=== PATIENT | female | born 1935 | race Caucasian/White ===

== ENCOUNTER 2018-08-22 11:02 | Inpatient (IN) ==
[2018-08-22] MEDS ORDERED: hydrALAZINE 20 MG/1 ML VIAL IM STA (11:43)
[2018-08-22] MEDS ORDERED: hydrALAZINE 20 MG/1 ML VIAL IV STA (12:22)
[2018-08-22 12:35] LABS: Basophils # 0.1 10*3/uL (0.0-0.2); Basophils % 0.6 % (0.0-0.8); Eosinophils # 0.8 10*3/uL (0.0-0.87); Eosinophils % 10.1 % (0.00-10.9); Hematocrit 38.4 VOL% (35.7-47.0); Hemoglobin 12.3 GM/DL (12.0-16.0); Immature Granulocytes % 0.4 %; Immature Granulocytes Absolute 0.03 #; Lymphocytes # 2.1 10*3/uL (1.4-4.0); Mean Corpuscular Volume 95.5 FL (87-102); Mean Platelet Volume 10.3 FL (9.6-12.0); Neutrophils % 50.9 % (38.7-73.9); Platelet Count 236 T/CUMM (130-400); Red Blood Count 4.02 MC/CUMM (3.8-5.5); Red Cell Distribution Width 13.6 % (9.3-17.3); White Blood Count 8.2 T/CUMM (4-12)
[2018-08-22 12:45] LABS: INR 1.1; Partial Thromboplastin Time 27.4 SECS (0-40)
[2018-08-22 13:01] LABS: Troponin I < 0.015 NG/ML (0.00-0.045)
[2018-08-22 13:05] LABS: Albumin 3.4 G/DL (3.4-5.0); Bilirubin,Total 0.6 MG/DL (0.2-1.0); Calcium 9.7 MG/DL (8.5-10.1); Osmolality,Calculated 277.7 MOS/KG (273-304); Total Protein 6.9 G/DL (6.4-8.3)
[2018-08-22 13:06] LABS: Free T4 (Free Thyroxine) 1.07 NG/DL (0.76-1.46); Thyroid Stimulating Hormone 13.3 uIU/ml (0.358-3.74)
[2018-08-22 13:45] LABS: Apearance,Urine Slightly Hazy (Clear); Bilirubin,Urine Negative (Negative); Blood, Urine Negative (Negative); Glucose,Urine (UA) Negative (Negative); Ketones,Urine Negative (Negative); Mucus,Urine Occasional /LPF (Occasional); Nitrite,Urine Negative (Negative); Protein,Urine >=500 MG/DL; RBC,Urine 5 /HPF (0-4); Squamous Epithelial Cell,Urine Occasional /HPF (0-10); Urine Color Yellow (Yellow); Urine Specific Gravity 1.015 (1.001-1.035); Urine Urobilinogen < 2.0 EU/DL (0.2-1.0); WBC,Urine 4 /HPF (0-6)
[2018-08-22] MEDS ORDERED: ONDANSETRON 4 MG/2 ML VIAL IV PRN (16:11)
[2018-08-22] MEDS ORDERED: ACETAMINOPHEN 325 MG TABLET PO PRN (16:11)
[2018-08-22] MEDS ORDERED: BIOTIN 5 MG PO SCH (21:00)
[2018-08-22] MEDS: CALCIUM (CARBONATE) 600 MG TABLET PO SCH (21:36)
[2018-08-22] MEDS: MULTIVITAMIN (CENTRUM) TABLET PO SCH (21:36)
[2018-08-22] MEDS: MULTIVITAMIN (OCUVITE) TABLET PO SCH (21:37)
[2018-08-22] MEDS: LACTOBACILLUS RHAMNOSUS GG CAPSULE PO SCH (21:37)
[2018-08-22] MEDS: DOCUSATE SODIUM 100 MG CAPSULE PO SCH (21:37)
[2018-08-22] MEDS: MAGNESIUM CHLORIDE 64 MG TABLET PO SCH (21:37)
[2018-08-22] MEDS: MULTIVITAMIN (BEROCCA) TABLET PO SCH (21:38)
[2018-08-22] MEDS: SIMVASTATIN 10 MG TABLET PO SCH (21:38)
[2018-08-22] MEDS: CARVEDILOL 25 MG TABLET PO SCH (21:38)
[2018-08-22] MEDS: ASCORBIC ACID 500 MG TABLET PO SCH (21:38)
[2018-08-22] MEDS: APIXABAN 5 MG TABLET PO SCH (21:39)
[2018-08-22] MEDS: tiZANidine 4 MG TABLET PO SCH (21:39)
[2018-08-23] MEDS: ASCORBIC ACID 500 MG TABLET PO SCH ×2 (07:59→20:39)
[2018-08-23] MEDS: DOCUSATE SODIUM 100 MG CAPSULE PO SCH ×2 (08:00→20:39)
[2018-08-23] MEDS: MAGNESIUM CHLORIDE 64 MG TABLET PO SCH ×2 (08:00→20:39)
[2018-08-23] MEDS: ASPIRIN CHEW 81 MG TABLET PO SCH (08:00)
[2018-08-23] MEDS: CARVEDILOL 25 MG TABLET PO SCH ×2 (08:00→20:39)
[2018-08-23] MEDS: PANTOPRAZOLE 40 MG TABLET PO SCH (08:00)
[2018-08-23] MEDS: APIXABAN 5 MG TABLET PO SCH ×2 (08:00→20:39)
[2018-08-23] MEDS: LOSARTAN 50 MG TABLET PO SCH (08:00)
[2018-08-23] MEDS: tiZANidine 4 MG TABLET PO SCH ×2 (08:01→20:39)
[2018-08-23] MEDS ORDERED: cloNIDine 0.1 MG TABLET PO PRN (08:54)
[2018-08-23] MEDS ORDERED: POTASSIUM CHLORIDE 20 MEQ TABLET PO SCH (09:00)
[2018-08-23] MEDS ORDERED: LEVOTHYROXINE 50 MCG TABLET PO SCH (09:00)
[2018-08-23] MEDS ORDERED: PANTOPRAZOLE 40 MG TABLET PO SCH (09:00)
[2018-08-23] MEDS: DULoxetine 30 MG CAPSULE PO SCH (09:11)
[2018-08-23] MEDS ORDERED: MAGNESIUM SULF RIDER 2 GM in PREMIX 1 EACH IV ONE (11:03)
[2018-08-23] MEDS: LACTOBACILLUS RHAMNOSUS GG CAPSULE PO SCH (20:39)
[2018-08-23] MEDS: MULTIVITAMIN (OCUVITE) TABLET PO SCH (20:39)
[2018-08-23] MEDS: SIMVASTATIN 10 MG TABLET PO SCH (20:39)
[2018-08-23] MEDS: CALCIUM (CARBONATE) 600 MG TABLET PO SCH (20:39)
[2018-08-23] MEDS: MULTIVITAMIN (BEROCCA) TABLET PO SCH (20:39)
[2018-08-23] MEDS: MULTIVITAMIN (CENTRUM) TABLET PO SCH (20:39)
[2018-08-24 05:09] LABS: Basophils # 0.1 10*3/uL (0.0-0.2); Basophils % 0.6 % (0.0-0.8); Eosinophils # 0.7 10*3/uL (0.0-0.87); Eosinophils % 8.3 % (0.00-10.9); Hematocrit 35.4 VOL% (35.7-47.0); Hemoglobin 10.9 GM/DL (12.0-16.0); Immature Granulocytes % 0.1 %; Immature Granulocytes Absolute 0.01 #; Lymphocytes # 2.2 10*3/uL (1.4-4.0); Lymphocytes % 27.4 % (21.3-54.2); Mean Corpuscular HGB Conc 30.8 GM/DL (32-36); Mean Platelet Volume 10.6 FL (9.6-12.0); Monocytes % 11.9 % (1.7-12.7); Neutrophils % 51.7 % (38.7-73.9); Platelet Count 224 T/CUMM (130-400); Red Blood Count 3.65 MC/CUMM (3.8-5.5); Red Cell Distribution Width 13.4 % (9.3-17.3)
[2018-08-24 05:15] LABS: Calcium 9.3 MG/DL (8.5-10.1); Osmolality,Calculated 278.5 MOS/KG (273-304)
[2018-08-24] MEDS ORDERED: LEVOTHYROXINE 75 MCG TABLET PO SCH (06:30)
[2018-08-24] MEDS: DULoxetine 30 MG CAPSULE PO SCH (08:36)
[2018-08-24] MEDS: CARVEDILOL 25 MG TABLET PO SCH (08:36)
[2018-08-24] MEDS: ASCORBIC ACID 500 MG TABLET PO SCH (08:37)
[2018-08-24] MEDS: LOSARTAN 50 MG TABLET PO SCH (08:37)
[2018-08-24] MEDS: MAGNESIUM CHLORIDE 64 MG TABLET PO SCH (08:37)
[2018-08-24] MEDS: APIXABAN 5 MG TABLET PO SCH (08:37)
[2018-08-24] MEDS: ASPIRIN CHEW 81 MG TABLET PO SCH (08:37)
[2018-08-24] MEDS: DOCUSATE SODIUM 100 MG CAPSULE PO SCH (08:37)
[2018-08-24] MEDS: PANTOPRAZOLE 40 MG TABLET PO SCH (08:38)
[2018-08-24] MEDS: tiZANidine 4 MG TABLET PO SCH (08:38)
[2018-08-24] MEDS ORDERED: amLODIPine 5 MG TABLET PO SCH (09:00)
[2018-08-24 11:29] VITALS: BP 135/57
== END 2018-08-24 12:11 | disposition home or self-care (01) | DRG 69 ==
LOC: EDBD → EDUNIT# → N.ED 11:02 → N.EDINP 14:14 → N.2E 15:18
PROVIDERS: ADMIT Family Medicine; ATTEND Family Medicine

== ENCOUNTER 2019-07-11 13:41 | Observation (INO) ==
[2019-07-11] MEDS ORDERED: ONDANSETRON 4 MG/2 ML VIAL IV PRN (14:27)
[2019-07-11] MEDS ORDERED: ACETAMINOPHEN 325 MG TABLET PO PRN (14:27)
[2019-07-11] MEDS ORDERED: SODIUM CHLORIDE 0.9% 1,000 ML IV PRN (18:15)
[2019-07-11] MEDS ORDERED: diphenhydrAMINE CAP 25 MG CAPSULE PO ONE (18:18)
[2019-07-11] MEDS ORDERED: ACETAMINOPHEN 325 MG TABLET PO ONE (18:19)
[2019-07-11] MEDS ORDERED: FUROSEMIDE 20 MG/2 ML VIAL IV ONE (19:11)
[2019-07-11] MEDS: carvediloL 25 MG TABLET PO SCH (20:47)
[2019-07-11] MEDS ORDERED: SIMVASTATIN 10 MG TABLET PO SCH (21:00)
[2019-07-11] MEDS: SODIUM CHLORIDE 0.9% 1,000 ML IV SCH (22:21)
[2019-07-12] MEDS ORDERED: LEVOTHYROXINE 75 MCG TABLET PO SCH (06:30)
[2019-07-12 07:13] LABS: Basophils # 0.1 10*3/uL (0.0-0.2); Basophils % 0.3 % (0.0-0.8); Eosinophils # 0.5 10*3/uL (0.0-0.87); Eosinophils % 1.7 % (0.00-10.9); Hematocrit 27.6 VOL% (35.7-47.0); Lymphocytes # 1.1 10*3/uL (1.4-4.0); Lymphocytes % 3.7 % (21.3-54.2); Mean Corpuscular HGB Conc 32.6 GM/DL (32-36); Mean Corpuscular Volume 93.9 FL (87-102); Mean Platelet Volume 10.3 FL (9.6-12.0); Monocytes % 5.7 % (1.7-12.7); Neutrophils % 87.6 % (38.7-73.9); Platelet Count 476 T/CUMM (130-400); Red Blood Count 2.94 MC/CUMM (3.8-5.5); Red Cell Distribution Width 15.8 % (9.3-17.3); White Blood Count 30.3 T/CUMM (4-12)
[2019-07-12 07:33] LABS: Band Neutrophils 8 % (0-10); Hypochromasia 1+; Lymphocytes 2 % (20-55); Segmented Neutrophils 85 % (50-85); Total Cells Counted 100
[2019-07-12 07:34] LABS: Anisocytosis 1+; Microcytosis 1+; Platelet Estimate Increased; Polychromasia Slight
[2019-07-12 07:43] LABS: Albumin 2.4 G/DL (3.4-5.0); Bilirubin,Total 0.6 MG/DL (0.2-1.0); Calcium 9.3 MG/DL (8.5-10.1); Osmolality,Calculated 280.2 MOS/KG (273-304); Total Protein 6.8 G/DL (6.4-8.3)
[2019-07-12] MEDS ORDERED: cefTRIAXone 1,000 MG in SYRINGE 1 EACH IV ONE (08:42)
[2019-07-12] MEDS ORDERED: SODIUM CHLORIDE 0.9% 1,000 ML IV PRN ×2 (08:46→10:11)
[2019-07-12] MEDS ORDERED: POTASSIUM CHLORIDE 20 MEQ PACK PO SCH (09:00)
[2019-07-12] MEDS ORDERED: VALSARTAN 80 MG TABLET PO SCH (09:00)
[2019-07-12] MEDS ORDERED: hydroCHLOROthiazide 12.5 MG CAPSULE PO SCH (09:00)
[2019-07-12] MEDS ORDERED: amLODIPine 5 MG TABLET PO SCH (09:00)
[2019-07-12] MEDS ORDERED: PANTOPRAZOLE 40 MG TABLET PO SCH (09:00)
[2019-07-12] MEDS: carvediloL 25 MG TABLET PO SCH ×2 (09:48→17:16)
[2019-07-12] MEDS: SODIUM CHLORIDE 0.9% 1,000 ML IV SCH (09:51)
[2019-07-12 19:02] LABS: Apearance,Urine CLOUDY (Clear); Bilirubin,Urine Negative (Negative); Blood, Urine Moderate mg/dL (Negative); Glucose,Urine (UA) Negative (Negative); Ketones,Urine Negative (Negative); Mucus,Urine Occasional /LPF (Occasional); Nitrite,Urine Negative (Negative); Protein,Urine 100 MG/DL; RBC,Urine 15 /HPF (0-4); Squamous Epithelial Cell,Urine Few /HPF (0-10); Urine Color Yellow (Yellow); Urine Specific Gravity 1.014 (1.001-1.035); Urine Urobilinogen < 2.0 EU/DL (0.2-1.0); WBC,Urine 91 /HPF (0-6)
[2019-07-12 21:34] VITALS: BP 129/59
== END 2019-07-12 20:07 | disposition home or self-care (01) ==
LOC: N.TELEN
PROVIDERS: ADMIT Family Medicine; ATTEND Family Medicine

== ENCOUNTER 2021-11-20 13:16 | Inpatient (IN) ==
[2021-11-20 15:36] LABS: Basophils % 0.6 % (0.0-0.8); Eosinophils # 0.3 10*3/uL (0.0-0.87); Eosinophils % 3.6 % (0.00-10.9); Hematocrit 38.3 VOL% (35.7-47.0); Hemoglobin 12.5 GM/DL (12.0-16.0); Immature Granulocytes % 0.3 %; Immature Granulocytes Absolute 0.02 #; Lymphocytes # 2.5 10*3/uL (1.4-4.0); Lymphocytes % 34.3 % (21.3-54.2); Mean Corpuscular HGB Conc 32.6 GM/DL (32-36); Mean Corpuscular Volume 94.1 FL (87-102); Mean Platelet Volume 10.6 FL (9.6-12.0); Monocytes # 0.8 10*3/uL (0.11-0.8); Monocytes % 11.5 % (1.7-12.7); Neutrophils % 49.7 % (38.7-73.9); Platelet Count 267 T/CUMM (130-400); Red Blood Count 4.07 MC/CUMM (3.8-5.5); Red Cell Distribution Width 12.9 % (9.3-17.3); White Blood Count 7.2 T/CUMM (4-12)
[2021-11-20 15:44] LABS: PT Patient Result 11.3 SECS (10.1-12.1); Partial Thromboplastin Time 26.4 SECS (23.7-32.9)
[2021-11-20 15:52] LABS: Albumin 2.8 G/DL (3.4-5.0); Bilirubin,Total 0.4 MG/DL (0.20-1.00); Calcium 9.9 MG/DL (8.5-10.1); Osmolality,Calculated 276.1 MOS/KG (273-304); Potassium 4.5 MMOL/L (3.5-5.1); Total Protein 7.2 G/DL (6.4-8.2)
[2021-11-20] MEDS ORDERED: ONDANSETRON 4 MG/2 ML VIAL IV PRN (17:06)
[2021-11-20] MEDS ORDERED: ACETAMINOPHEN 325 MG TABLET PO PRN (17:06)
[2021-11-20] MEDS ORDERED: cloNIDine 0.1 MG TABLET PO STA (17:14)
[2021-11-20 18:04] LABS: Bilirubin,Urine Negative (Negative); Glucose,Urine (UA) Negative (Negative); Ketones,Urine Negative (Negative); Nitrite,Urine Negative (Negative); Protein,Urine >=300 mg/dL (Negative); Urine Appearance Clear (Clear); Urine Color Yellow (Yellow)
[2021-11-20 18:05] LABS: Blood, Urine Small mg/dL (Negative); Urine Urobilinogen 0.2 eU/dL (<2.0)
[2021-11-20 18:06] LABS: RBC,Urine 15-20 /HPF (0-4)
[2021-11-20] MEDS ORDERED: hydrALAZINE 20 MG/1 ML VIAL IV STA (18:19)
[2021-11-20] MEDS: SODIUM CHLORIDE 0.9% 1,000 ML IV SCH (18:35)
[2021-11-20] MEDS: MAGNESIUM CHLORIDE 64 MG TABLET PO SCH (21:40)
[2021-11-20] MEDS: carvediloL 25 MG TABLET PO SCH (21:41)
[2021-11-20] MEDS: SIMVASTATIN 10 MG TABLET PO SCH (21:41)
[2021-11-20] MEDS: LEVOTHYROXINE 175 MCG TABLET PO SCH (21:41)
[2021-11-20] MEDS: DOCUSATE SODIUM 100 MG CAPSULE PO SCH (22:30)
[2021-11-21 06:14] LABS: Basophils % 0.5 % (0.0-0.8); Eosinophils # 0.3 10*3/uL (0.0-0.87); Eosinophils % 4.5 % (0.00-10.9); Hematocrit 33.8 VOL% (35.7-47.0); Hemoglobin 10.9 GM/DL (12.0-16.0); Immature Granulocytes % 0.2 %; Immature Granulocytes Absolute 0.01 #; Lymphocytes # 2.2 10*3/uL (1.4-4.0); Lymphocytes % 36.7 % (21.3-54.2); Mean Corpuscular HGB Conc 32.2 GM/DL (32-36); Mean Corpuscular Volume 95.5 FL (87-102); Mean Platelet Volume 10.1 FL (9.6-12.0); Monocytes % 15.9 % (1.7-12.7); Neutrophils % 42.2 % (38.7-73.9); Platelet Count 222 T/CUMM (130-400); Red Blood Count 3.54 MC/CUMM (3.8-5.5)
[2021-11-21 06:35] LABS: Alanine Aminotransferase 12 U/L (13-56); Albumin 2.5 G/DL (3.4-5.0); Alkaline Phosphatase 62 U/L (45-117); Aspartate Amino Transferase 25 U/L (0-37); Bilirubin,Total < 0.39 MG/DL (0.20-1.00); Blood Urea Nitrogen 27 MG/DL (7-18); Calcium 9.3 MG/DL (8.5-10.1); Carbon Dioxide 29 MMOL/L (21-32); Chloride 105 MMOL/L (98-107); Glucose 87 MG/DL (74-106); Osmolality,Calculated 280.5 MOS/KG (273-304); Sodium 139 MMOL/L (136-145); Total Protein 6.3 G/DL (6.4-8.2)
[2021-11-21 06:44] LABS: Total Protein (Chem) 6.3 G/DL (6.4-8.3)
[2021-11-21 06:48] LABS: Eosinophils 6 % (0-10); Hypochromia Slight; Lymphocytes 40 % (20-55); Platelet Estimate Adequate; Total Cells Counted 100
[2021-11-21 06:49] LABS: Microcytosis Slight
[2021-11-21 09:25] LABS: Albumin (SPE) 3.4 G/DL (3.2-5.3); Alpha 1 (SPE) 0.2 G/DL (0.1-0.4); Alpha 1 (SPE) Rel % 3.5 %; Alpha 2 (SPE) Rel % 16.4 %; Beta (SPE) 0.8 G/DL (0.5-1.1); Beta (SPE) Rel % 12.7 %; Gamma (SPE) 0.8 G/DL (0.7-1.7); Gamma (SPE) Rel % 13.4 %
[2021-11-21] MEDS: hydroCHLOROthiazide 25 MG TABLET PO SCH (09:49)
[2021-11-21] MEDS: PANTOPRAZOLE 40 MG TABLET PO SCH (09:50)
[2021-11-21] MEDS: carvediloL 25 MG TABLET PO SCH ×2 (09:50→17:00)
[2021-11-21] MEDS: DOCUSATE SODIUM 100 MG CAPSULE PO SCH ×2 (09:50→21:41)
[2021-11-21] MEDS: MAGNESIUM CHLORIDE 64 MG TABLET PO SCH ×2 (09:52→21:41)
[2021-11-21] MEDS: SODIUM CHLORIDE 0.9% 1,000 ML IV SCH ×3 (10:01→21:56)
[2021-11-21] MEDS ORDERED: BISACODYL 5 MG TABLET PO ONE (15:00)
[2021-11-21] MEDS ORDERED: POLYETHYLENE GLYCOL POWDER 255 GM BOTTLE PO ONE (18:00)
[2021-11-21] MEDS: LEVOTHYROXINE 175 MCG TABLET PO SCH (21:41)
[2021-11-21] MEDS: SIMVASTATIN 10 MG TABLET PO SCH (21:42)
[2021-11-22] MEDS: hydrALAZINE 20 MG/1 ML VIAL IV PRN ×2 (02:04→17:05)
[2021-11-22] MEDS ORDERED: POLYETHYLENE GLYCOL POWDER 255 GM BOTTLE PO ONE (05:00)
[2021-11-22 05:02] LABS: PT Patient Result 11.4 SECS (10.1-12.1)
[2021-11-22] MEDS ORDERED: CLINDAMYCIN INJ 900 MG/50 ML PREMIX IV ONE (06:00)
[2021-11-22] MEDS ORDERED: ETOMIDATE 40 MG/20 ML VIAL IV ONE (07:16)
[2021-11-22] MEDS ORDERED: DEXAMETHASONE 4 MG/1 ML VIAL ONE ×2 (07:16→11:42)
[2021-11-22] MEDS ORDERED: ONDANSETRON 4 MG/2 ML VIAL ONE (07:16)
[2021-11-22] MEDS ORDERED: LIDOCAINE 2% 5 ML VIAL ONE (07:16)
[2021-11-22] MEDS ORDERED: propofoL 200 MG/20 ML VIAL IV ONE (07:16)
[2021-11-22] MEDS ORDERED: SEVOFLURANE 1 UNIT/15 MINUTE INH ONE ×4 (07:16→11:06)
[2021-11-22] MEDS ORDERED: fentaNYL 100 MCG/2 ML VIAL ONE (07:17)
[2021-11-22] MEDS ORDERED: ACETAMINOPHEN INJ 0 MG/0 ML VIAL IV ONE (07:28)
[2021-11-22] MEDS ORDERED: LACTATED RINGERS 1,000 ML IV SCH (08:00)
[2021-11-22] MEDS ORDERED: SUCCINYLCHOLINE 200 MG/10 ML VIAL ONE (08:25)
[2021-11-22] MEDS ORDERED: PHENYLEPHRINE 1 MG/10 ML SYRINGE IV ONE ×2 (08:33→09:15)
[2021-11-22] MEDS ORDERED: ePHEDrine 50 MG/ML VIAL ONE (09:12)
[2021-11-22] MEDS ORDERED: LACTATED RINGERS 1,000 ML IV ONE (10:15)
[2021-11-22] MEDS ORDERED: NEOSTIGMINE 10 MG/10 ML VIAL ONE (10:26)
[2021-11-22] MEDS ORDERED: GLYCOPYRROLATE 0.4 MG/2 ML VIAL ONE (10:26)
[2021-11-22] MEDS: MAGNESIUM CHLORIDE 64 MG TABLET PO SCH ×2 (11:04→22:09)
[2021-11-22] MEDS: PANTOPRAZOLE 40 MG TABLET PO SCH (11:04)
[2021-11-22] MEDS: DOCUSATE SODIUM 100 MG CAPSULE PO SCH ×2 (11:04→22:09)
[2021-11-22] MEDS: hydroCHLOROthiazide 25 MG TABLET PO SCH (11:04)
[2021-11-22] MEDS: carvediloL 25 MG TABLET PO SCH ×2 (11:04→17:06)
[2021-11-22] MEDS: LACTATED RINGERS 1,000 ML IV SCH (11:04)
[2021-11-22] MEDS ORDERED: ACETAMINOPHEN INJ 1,000 MG/100 ML VIAL IV ONE (11:06)
[2021-11-22] MEDS ORDERED: SUGAMMADEX 200 MG/2 ML VIAL IV ONE (11:28)
[2021-11-22] MEDS ORDERED: HYDROmorphone 1 MG/1 ML SYRINGE ONE (11:33)
[2021-11-22] MEDS ORDERED: HYDROmorphone 1 MG/1 ML SYRINGE IV PRN (11:36)
[2021-11-22] MEDS ORDERED: LIDOCAINE 1% 5 ML VIAL ONE (11:42)
[2021-11-22] MEDS ORDERED: ROPIVACAINE 0.5% 30 ML VIAL ONE (11:43)
[2021-11-22] MEDS: HYDROmorphone 1 MG/1 ML SYRINGE IV PRN ×3 (15:54→23:47)
[2021-11-22] MEDS: SODIUM CHLORIDE 0.9% 1,000 ML IV SCH (17:05)
[2021-11-22] MEDS: LEVOTHYROXINE 175 MCG TABLET PO SCH (22:09)
[2021-11-22] MEDS: SIMVASTATIN 10 MG TABLET PO SCH (22:09)
[2021-11-23] MEDS: SODIUM CHLORIDE 0.9% 1,000 ML IV SCH ×2 (03:05→17:03)
[2021-11-23] MEDS: hydrALAZINE 20 MG/1 ML VIAL IV PRN ×3 (04:53→13:00)
[2021-11-23 06:47] LABS: Basophils % 0.1 % (0.0-0.8); Hematocrit 36.9 VOL% (35.7-47.0); Hemoglobin 12.1 GM/DL (12.0-16.0); Immature Granulocytes % 0.5 %; Immature Granulocytes Absolute 0.07 #; Lymphocytes # 2.2 10*3/uL (1.4-4.0); Lymphocytes % 14.9 % (21.3-54.2); Mean Corpuscular HGB Conc 32.8 GM/DL (32-36); Mean Corpuscular Volume 92.7 FL (87-102); Mean Platelet Volume 9.9 FL (9.6-12.0); Monocytes # 1.3 10*3/uL (0.11-0.8); Monocytes % 8.7 % (1.7-12.7); Neutrophils % 75.8 % (38.7-73.9); Platelet Count 291 T/CUMM (130-400); Red Blood Count 3.98 MC/CUMM (3.8-5.5); Red Cell Distribution Width 13.2 % (9.3-17.3); White Blood Count 14.9 T/CUMM (4-12)
[2021-11-23] MEDS: HYDROmorphone 1 MG/1 ML SYRINGE IV PRN ×3 (06:47→19:31)
[2021-11-23 07:14] LABS: Calcium 9.6 MG/DL (8.5-10.1); Potassium 4.4 MMOL/L (3.5-5.1)
[2021-11-23] MEDS: hydroCHLOROthiazide 25 MG TABLET PO SCH (09:42)
[2021-11-23] MEDS: PANTOPRAZOLE 40 MG TABLET PO SCH (09:42)
[2021-11-23] MEDS: carvediloL 25 MG TABLET PO SCH ×2 (09:42→16:52)
[2021-11-23] MEDS: LACTATED RINGERS 1,000 ML IV SCH (09:42)
[2021-11-23] MEDS: DOCUSATE SODIUM 100 MG CAPSULE PO SCH ×2 (09:42→20:06)
[2021-11-23] MEDS: MAGNESIUM CHLORIDE 64 MG TABLET PO SCH ×2 (09:43→20:07)
[2021-11-23] MEDS: KETOROLAC 15 MG/1 ML VIAL IV PRN ×2 (09:56→17:03)
[2021-11-23] MEDS: LEVOTHYROXINE 175 MCG TABLET PO SCH (20:06)
[2021-11-23] MEDS: SIMVASTATIN 10 MG TABLET PO SCH (20:07)
[2021-11-24] MEDS: HYDROmorphone 1 MG/1 ML SYRINGE IV PRN ×5 (02:25→20:13)
[2021-11-24] MEDS: SODIUM CHLORIDE 0.9% 1,000 ML IV SCH ×2 (05:40→19:11)
[2021-11-24] MEDS: hydroCHLOROthiazide 25 MG TABLET PO SCH (08:35)
[2021-11-24] MEDS: PANTOPRAZOLE 40 MG TABLET PO SCH (08:35)
[2021-11-24] MEDS: MAGNESIUM CHLORIDE 64 MG TABLET PO SCH ×2 (08:35→20:15)
[2021-11-24] MEDS: DOCUSATE SODIUM 100 MG CAPSULE PO SCH ×2 (08:35→20:15)
[2021-11-24] MEDS: carvediloL 25 MG TABLET PO SCH ×2 (08:35→16:14)
[2021-11-24] MEDS: KETOROLAC 15 MG/1 ML VIAL IV PRN ×3 (08:41→23:29)
[2021-11-24] MEDS: LACTATED RINGERS 1,000 ML IV SCH (08:44)
[2021-11-24] MEDS: LEVOTHYROXINE 175 MCG TABLET PO SCH (20:15)
[2021-11-24] MEDS: SIMVASTATIN 10 MG TABLET PO SCH (20:15)
[2021-11-25] MEDS ORDERED: ALBUTEROL/IPRATROPIUM 3 ML NEB RESP TX PRN (04:54)
[2021-11-25] MEDS ORDERED: FUROSEMIDE 40 MG/4 ML VIAL IV ONE ×2 (04:54→10:15)
[2021-11-25] MEDS: HYDROmorphone 1 MG/1 ML SYRINGE IV PRN (05:07)
[2021-11-25 06:10] LABS: Albumin 2.1 G/DL (3.4-5.0); Bilirubin,Total 0.6 MG/DL (0.20-1.00); Calcium 8.8 MG/DL (8.5-10.1); Osmolality,Calculated 277.7 MOS/KG (273-304); Potassium 3.7 MMOL/L (3.5-5.1); Total Protein 6.1 G/DL (6.4-8.2)
[2021-11-25] MEDS: KETOROLAC 15 MG/1 ML VIAL IV PRN (09:17)
[2021-11-25] MEDS: DOCUSATE SODIUM 100 MG CAPSULE PO SCH ×2 (09:28→20:56)
[2021-11-25] MEDS: carvediloL 25 MG TABLET PO SCH ×2 (09:28→17:37)
[2021-11-25] MEDS: hydroCHLOROthiazide 25 MG TABLET PO SCH (09:29)
[2021-11-25] MEDS: MAGNESIUM CHLORIDE 64 MG TABLET PO SCH ×2 (09:29→20:56)
[2021-11-25] MEDS: ENOXAPARIN 40 MG/0.4 ML SYRINGE SUBCUT SCH (09:29)
[2021-11-25] MEDS: PANTOPRAZOLE 40 MG TABLET PO SCH (09:29)
[2021-11-25] MEDS ORDERED: MORPHINE 2 MG/1 ML SYRINGE IV ONE (10:15)
[2021-11-25] MEDS: FLUTICASONE 50 MCG NASAL SPRAY 16 GM BOTTLE BOTH NARES SCH (15:31)
[2021-11-25] MEDS: AZELASTINE NASAL 137 MCG/SPRAY 30 ML BOTTLE BOTH NARES SCH ×2 (15:31→20:55)
[2021-11-25] MEDS: SIMVASTATIN 10 MG TABLET PO SCH (20:56)
[2021-11-25] MEDS: LEVOTHYROXINE 175 MCG TABLET PO SCH (20:56)
[2021-11-26] MEDS: KETOROLAC 15 MG/1 ML VIAL IV PRN ×2 (04:26→11:32)
[2021-11-26] MEDS: hydroCHLOROthiazide 25 MG TABLET PO SCH (08:35)
[2021-11-26] MEDS: DOCUSATE SODIUM 100 MG CAPSULE PO SCH ×2 (08:35→21:56)
[2021-11-26] MEDS: MAGNESIUM CHLORIDE 64 MG TABLET PO SCH ×2 (08:36→21:56)
[2021-11-26] MEDS: carvediloL 25 MG TABLET PO SCH ×2 (08:36→17:16)
[2021-11-26] MEDS: FLUTICASONE 50 MCG NASAL SPRAY 16 GM BOTTLE BOTH NARES SCH (08:36)
[2021-11-26] MEDS: PANTOPRAZOLE 40 MG TABLET PO SCH (08:36)
[2021-11-26] MEDS: ENOXAPARIN 40 MG/0.4 ML SYRINGE SUBCUT SCH (08:36)
[2021-11-26] MEDS: AZELASTINE NASAL 137 MCG/SPRAY 30 ML BOTTLE BOTH NARES SCH ×2 (08:45→21:56)
[2021-11-26] MEDS: HYDROmorphone 1 MG/1 ML SYRINGE IV PRN (14:48)
[2021-11-26] MEDS ORDERED: POTASSIUM CHLORIDE 20 MEQ TABLET PO ONE (19:54)
[2021-11-26] MEDS: SIMVASTATIN 10 MG TABLET PO SCH (21:56)
[2021-11-26] MEDS: LEVOTHYROXINE 175 MCG TABLET PO SCH (21:56)
[2021-11-27 05:10] LABS: Basophils % 0.4 % (0.0-0.8); Eosinophils # 0.4 10*3/uL (0.0-0.87); Eosinophils % 4.8 % (0.00-10.9); Hematocrit 30.1 VOL% (35.7-47.0); Hemoglobin 9.8 GM/DL (12.0-16.0); Immature Granulocytes % 0.4 %; Immature Granulocytes Absolute 0.03 #; Lymphocytes # 1.6 10*3/uL (1.4-4.0); Lymphocytes % 21.3 % (21.3-54.2); Mean Corpuscular HGB Conc 32.6 GM/DL (32-36); Mean Corpuscular Volume 92.9 FL (87-102); Mean Platelet Volume 10.8 FL (9.6-12.0); Monocytes # 1.1 10*3/uL (0.11-0.8); Monocytes % 14.4 % (1.7-12.7); Neutrophils % 58.7 % (38.7-73.9); Platelet Count 239 T/CUMM (130-400); Red Blood Count 3.24 MC/CUMM (3.8-5.5); Red Cell Distribution Width 12.8 % (9.3-17.3); White Blood Count 7.4 T/CUMM (4-12)
[2021-11-27 05:38] LABS: Calcium 8.9 MG/DL (8.5-10.1); Osmolality,Calculated 280.5 MOS/KG (273-304); Potassium 3.8 MMOL/L (3.5-5.1)
[2021-11-27 08:42] VITALS: BP 182/81
[2021-11-27] MEDS: carvediloL 25 MG TABLET PO SCH (10:28)
[2021-11-27] MEDS: DOCUSATE SODIUM 100 MG CAPSULE PO SCH (10:29)
[2021-11-27] MEDS: PANTOPRAZOLE 40 MG TABLET PO SCH (10:30)
[2021-11-27] MEDS: hydroCHLOROthiazide 25 MG TABLET PO SCH (10:30)
[2021-11-27] MEDS: MAGNESIUM CHLORIDE 64 MG TABLET PO SCH (10:31)
[2021-11-27] MEDS: AZELASTINE NASAL 137 MCG/SPRAY 30 ML BOTTLE BOTH NARES SCH (10:35)
[2021-11-27] MEDS: FLUTICASONE 50 MCG NASAL SPRAY 16 GM BOTTLE BOTH NARES SCH (10:35)
[2021-11-27] MEDS: ENOXAPARIN 40 MG/0.4 ML SYRINGE SUBCUT SCH (10:40)
== END 2021-11-27 12:37 | disposition swing bed (61) | DRG 740 ==
LOC: N.ED 13:16 → N.EDINP 17:05 → N.3E 18:20
PROVIDERS: ADMIT Family Medicine; ATTEND Family Medicine

== ENCOUNTER 2021-12-19 09:10 | Inpatient (IN) ==
[2021-12-19 11:21] LABS: Basophils % 0.2 % (0.0-0.8); Eosinophils # 0.4 10*3/uL (0.0-0.87); Eosinophils % 2.9 % (0.00-10.9); Hematocrit 31.8 VOL% (35.7-47.0); Hemoglobin 10.3 GM/DL (12.0-16.0); Immature Granulocytes % 0.7 %; Lymphocytes # 1.5 10*3/uL (1.4-4.0); Lymphocytes % 10.4 % (21.3-54.2); Mean Corpuscular HGB Conc 32.4 GM/DL (32-36); Mean Corpuscular Volume 91.6 FL (87-102); Mean Platelet Volume 10.6 FL (9.6-12.0); Monocytes # 1.5 10*3/uL (0.11-0.8); Monocytes % 9.9 % (1.7-12.7); Neutrophils % 75.9 % (38.7-73.9); Platelet Count 338 T/CUMM (130-400); Red Blood Count 3.47 MC/CUMM (3.8-5.5); White Blood Count 14.7 T/CUMM (4-12)
[2021-12-19 11:42] LABS: Albumin 2.3 G/DL (3.4-5.0); Bilirubin,Total 0.4 MG/DL (0.20-1.00); Calcium 9.7 MG/DL (8.5-10.1); Osmolality,Calculated 283.4 MOS/KG (273-304); Potassium 4.8 MMOL/L (3.5-5.1)
[2021-12-19 12:00] LABS: Glucose,Urine (UA) Negative (Negative); Ketones,Urine Negative (Negative); Urine Appearance Slightly Cloudy (Clear); Urine Color Yellow (Yellow); Urine pH 5.5 (4.5-8.0)
[2021-12-19 12:01] LABS: Bilirubin,Urine Negative (Negative); Blood, Urine Negative (Negative); Nitrite,Urine Negative (Negative); Protein,Urine 100 mg/dL (Negative); Urine Urobilinogen 0.2 eU/dL (<2.0)
[2021-12-19 12:03] LABS: Amorphous Crystals,Urine Occasional /HPF (Few)
[2021-12-19] MEDS ORDERED: SODIUM CHLORIDE 0.9% 1,000 ML IV STA (12:43)
[2021-12-19] MEDS ORDERED: ONDANSETRON 4 MG/2 ML VIAL IV PRN (13:18)
[2021-12-19] MEDS ORDERED: LACTULOSE 20 GM/30 ML UDCUP PO STA (13:51)
[2021-12-19] MEDS: SODIUM CHLORIDE 0.9% 1,000 ML IV SCH ×2 (15:11→23:30)
[2021-12-19] MEDS: ACETAMINOPHEN 325 MG TABLET PO PRN (15:17)
[2021-12-19] MEDS ORDERED: LEVOTHYROXINE 175 MCG TABLET PO SCH (21:00)
[2021-12-19] MEDS: diphenhydrAMINE CAP 25 MG CAPSULE PO SCH (21:40)
[2021-12-19] MEDS: DOCUSATE SODIUM 100 MG CAPSULE PO SCH (21:40)
[2021-12-19] MEDS: MAGNESIUM CHLORIDE 64 MG TABLET PO SCH (21:40)
[2021-12-19] MEDS: DULoxetine 30 MG CAPSULE PO SCH (21:40)
[2021-12-19] MEDS: ENOXAPARIN 30 MG/0.3 ML SYRINGE SUBCUT SCH (21:40)
[2021-12-19] MEDS: ACETAMINOPHEN 500 MG TABLET PO SCH (21:40)
[2021-12-19] MEDS: SIMVASTATIN 10 MG TABLET PO SCH (21:41)
[2021-12-20] MEDS: LEVOTHYROXINE 175 MCG TABLET PO SCH (06:07)
[2021-12-20 09:10] LABS: Basophils % 0.3 % (0.0-0.8); Eosinophils # 0.5 10*3/uL (0.0-0.87); Eosinophils % 4.1 % (0.00-10.9); Hematocrit 25.8 VOL% (35.7-47.0); Hemoglobin 8.4 GM/DL (12.0-16.0); Immature Granulocytes % 0.5 %; Immature Granulocytes Absolute 0.06 #; Lymphocytes # 1.3 10*3/uL (1.4-4.0); Lymphocytes % 11.5 % (21.3-54.2); Mean Corpuscular HGB Conc 32.6 GM/DL (32-36); Mean Corpuscular Volume 91.8 FL (87-102); Mean Platelet Volume 10.3 FL (9.6-12.0); Monocytes # 1.3 10*3/uL (0.11-0.8); Neutrophils % 72.6 % (38.7-73.9); Platelet Count 305 T/CUMM (130-400); Red Blood Count 2.81 MC/CUMM (3.8-5.5); Red Cell Distribution Width 12.9 % (9.3-17.3); White Blood Count 11.4 T/CUMM (4-12)
[2021-12-20 09:22] LABS: Calcium 8.4 MG/DL (8.5-10.1); Potassium 4.3 MMOL/L (3.5-5.1)
[2021-12-20] MEDS: MAGNESIUM CHLORIDE 64 MG TABLET PO SCH ×2 (10:42→21:41)
[2021-12-20] MEDS: PANTOPRAZOLE 40 MG TABLET PO SCH (10:42)
[2021-12-20] MEDS: hydroCHLOROthiazide 25 MG TABLET PO SCH (10:42)
[2021-12-20] MEDS: carvediloL 25 MG TABLET PO SCH ×2 (10:42→16:35)
[2021-12-20] MEDS: DOCUSATE SODIUM 100 MG CAPSULE PO SCH ×2 (10:42→21:41)
[2021-12-20] MEDS: cefTRIAXone 1,000 MG in SODIUM CHLORIDE 0.9% 100 ML IV SCH (10:43)
[2021-12-20] MEDS: SODIUM CHLORIDE 0.9% 1,000 ML IV SCH ×2 (10:43→21:42)
[2021-12-20] MEDS: FLUTICASONE 50 MCG NASAL SPRAY 16 GM BOTTLE BOTH NARES SCH (10:49)
[2021-12-20] MEDS ORDERED: FIDAXOMICIN 200 MG TABLET PO ONE (11:00)
[2021-12-20] MEDS ORDERED: FLUCONAZOLE 200 MG TABLET PO ONE (11:00)
[2021-12-20] MEDS ORDERED: SODIUM CHLORIDE 0.9% 1,000 ML IV PRN (13:23)
[2021-12-20] MEDS: ACETAMINOPHEN 500 MG TABLET PO SCH (21:41)
[2021-12-20] MEDS: diphenhydrAMINE CAP 25 MG CAPSULE PO SCH (21:41)
[2021-12-20] MEDS: DULoxetine 30 MG CAPSULE PO SCH (21:41)
[2021-12-20] MEDS: ENOXAPARIN 30 MG/0.3 ML SYRINGE SUBCUT SCH (21:42)
[2021-12-20] MEDS: SIMVASTATIN 10 MG TABLET PO SCH (21:42)
[2021-12-21] MEDS: ACETAMINOPHEN 325 MG TABLET PO PRN (04:59)
[2021-12-21] MEDS: SODIUM CHLORIDE 0.9% 1,000 ML IV SCH ×3 (05:39→16:49)
[2021-12-21] MEDS: LEVOTHYROXINE 175 MCG TABLET PO SCH (05:39)
[2021-12-21 05:58] LABS: Basophils % 0.3 % (0.0-0.8); Eosinophils # 0.2 10*3/uL (0.0-0.87); Eosinophils % 1.8 % (0.00-10.9); Hematocrit 29.9 VOL% (35.7-47.0); Hemoglobin 9.6 GM/DL (12.0-16.0); Immature Granulocytes % 0.5 %; Immature Granulocytes Absolute 0.06 #; Lymphocytes # 1.4 10*3/uL (1.4-4.0); Mean Corpuscular HGB Conc 32.1 GM/DL (32-36); Mean Corpuscular Volume 92.3 FL (87-102); Mean Platelet Volume 10.6 FL (9.6-12.0); Monocytes # 1.3 10*3/uL (0.11-0.8); Monocytes % 11.1 % (1.7-12.7); Neutrophils % 74.3 % (38.7-73.9); Platelet Count 331 T/CUMM (130-400); Red Blood Count 3.24 MC/CUMM (3.8-5.5); White Blood Count 11.6 T/CUMM (4-12)
[2021-12-21 06:18] LABS: Potassium 4.2 MMOL/L (3.5-5.1)
[2021-12-21] MEDS: cefTRIAXone 1,000 MG in SODIUM CHLORIDE 0.9% 100 ML IV SCH (10:11)
[2021-12-21] MEDS: DOCUSATE SODIUM 100 MG CAPSULE PO SCH ×2 (10:12→20:09)
[2021-12-21] MEDS: carvediloL 25 MG TABLET PO SCH ×2 (10:12→16:51)
[2021-12-21] MEDS: hydroCHLOROthiazide 25 MG TABLET PO SCH (10:12)
[2021-12-21] MEDS: MAGNESIUM CHLORIDE 64 MG TABLET PO SCH ×2 (10:13→20:09)
[2021-12-21] MEDS: PANTOPRAZOLE 40 MG TABLET PO SCH (10:15)
[2021-12-21] MEDS: FLUTICASONE 50 MCG NASAL SPRAY 16 GM BOTTLE BOTH NARES SCH (16:51)
[2021-12-21] MEDS: SIMVASTATIN 10 MG TABLET PO SCH (20:09)
[2021-12-21] MEDS: DULoxetine 30 MG CAPSULE PO SCH (20:09)
[2021-12-21] MEDS: ACETAMINOPHEN 500 MG TABLET PO SCH (20:09)
[2021-12-21] MEDS: ENOXAPARIN 30 MG/0.3 ML SYRINGE SUBCUT SCH (20:10)
[2021-12-21] MEDS: diphenhydrAMINE CAP 25 MG CAPSULE PO SCH (20:10)
[2021-12-22] MEDS: LEVOTHYROXINE 175 MCG TABLET PO SCH (06:37)
[2021-12-22] MEDS ORDERED: MIDAZOLAM 2 MG/2 ML VIAL ONE (08:14)
[2021-12-22] MEDS ORDERED: propofoL 200 MG/20 ML VIAL IV ONE (08:14)
[2021-12-22] MEDS ORDERED: fentaNYL 100 MCG/2 ML VIAL ONE (08:14)
[2021-12-22] MEDS ORDERED: LIDOCAINE 2% 5 ML VIAL ONE (08:16)
[2021-12-22] MEDS ORDERED: KETAMINE 500 MG/10 ML VIAL ONE (08:49)
[2021-12-22] MEDS: SODIUM CHLORIDE 0.9% 1,000 ML IV SCH ×2 (08:50→14:46)
[2021-12-22] MEDS: PANTOPRAZOLE 40 MG TABLET PO SCH ×2 (08:51→10:27)
[2021-12-22] MEDS: FLUTICASONE 50 MCG NASAL SPRAY 16 GM BOTTLE BOTH NARES SCH ×2 (08:51→10:27)
[2021-12-22] MEDS: carvediloL 25 MG TABLET PO SCH ×3 (08:51→17:11)
[2021-12-22] MEDS: DOCUSATE SODIUM 100 MG CAPSULE PO SCH ×3 (08:51→20:43)
[2021-12-22] MEDS: cefTRIAXone 1,000 MG in SODIUM CHLORIDE 0.9% 100 ML IV SCH ×2 (08:51→10:28)
[2021-12-22] MEDS: hydroCHLOROthiazide 25 MG TABLET PO SCH ×2 (08:51→10:27)
[2021-12-22] MEDS: MAGNESIUM CHLORIDE 64 MG TABLET PO SCH ×3 (08:52→20:42)
[2021-12-22] MEDS: diphenhydrAMINE CAP 25 MG CAPSULE PO SCH (20:42)
[2021-12-22] MEDS: DULoxetine 30 MG CAPSULE PO SCH (20:42)
[2021-12-22] MEDS: ENOXAPARIN 30 MG/0.3 ML SYRINGE SUBCUT SCH (20:43)
[2021-12-22] MEDS: ACETAMINOPHEN 500 MG TABLET PO SCH (20:43)
[2021-12-22] MEDS: SIMVASTATIN 10 MG TABLET PO SCH (20:43)
[2021-12-23] MEDS: SODIUM CHLORIDE 0.9% 1,000 ML IV SCH ×2 (01:54→12:55)
[2021-12-23 05:09] LABS: Basophils # 0.1 10*3/uL (0.0-0.2); Basophils % 0.5 % (0.0-0.8); Eosinophils # 0.6 10*3/uL (0.0-0.87); Eosinophils % 5.4 % (0.00-10.9); Hemoglobin 8.4 GM/DL (12.0-16.0); Immature Granulocytes % 1.4 %; Immature Granulocytes Absolute 0.15 #; Lymphocytes # 2.2 10*3/uL (1.4-4.0); Lymphocytes % 20.2 % (21.3-54.2); Mean Corpuscular HGB Conc 31.1 GM/DL (32-36); Mean Corpuscular Volume 92.5 FL (87-102); Mean Platelet Volume 10.8 FL (9.6-12.0); Monocytes % 9.4 % (1.7-12.7); Neutrophils % 63.1 % (38.7-73.9); Platelet Count 323 T/CUMM (130-400); Red Blood Count 2.92 MC/CUMM (3.8-5.5); Red Cell Distribution Width 13.2 % (9.3-17.3)
[2021-12-23 05:27] LABS: Calcium 8.7 MG/DL (8.5-10.1); Osmolality,Calculated 290.4 MOS/KG (273-304); Potassium 4.4 MMOL/L (3.5-5.1)
[2021-12-23] MEDS: LEVOTHYROXINE 175 MCG TABLET PO SCH (05:32)
[2021-12-23] MEDS: cefTRIAXone 1,000 MG in SODIUM CHLORIDE 0.9% 100 ML IV SCH (08:15)
[2021-12-23] MEDS: MAGNESIUM CHLORIDE 64 MG TABLET PO SCH ×2 (08:18→21:08)
[2021-12-23] MEDS: PANTOPRAZOLE 40 MG TABLET PO SCH (08:18)
[2021-12-23] MEDS: hydroCHLOROthiazide 25 MG TABLET PO SCH (08:19)
[2021-12-23] MEDS: DOCUSATE SODIUM 100 MG CAPSULE PO SCH ×2 (08:19→21:08)
[2021-12-23] MEDS: carvediloL 25 MG TABLET PO SCH ×2 (08:19→17:19)
[2021-12-23] MEDS: FLUTICASONE 50 MCG NASAL SPRAY 16 GM BOTTLE BOTH NARES SCH (09:25)
[2021-12-23] MEDS: diphenhydrAMINE CAP 25 MG CAPSULE PO SCH (21:07)
[2021-12-23] MEDS: ENOXAPARIN 30 MG/0.3 ML SYRINGE SUBCUT SCH (21:08)
[2021-12-23] MEDS: DULoxetine 30 MG CAPSULE PO SCH (21:08)
[2021-12-23] MEDS: ACETAMINOPHEN 500 MG TABLET PO SCH (21:08)
[2021-12-23] MEDS: SIMVASTATIN 10 MG TABLET PO SCH (21:08)
[2021-12-23] MEDS: ALPRAZolam 0.25 MG TABLET PO PRN (23:11)
[2021-12-23] MEDS: MORPHINE 2 MG/1 ML SYRINGE IV PRN (23:11)
[2021-12-24] MEDS: SODIUM CHLORIDE 0.9% 1,000 ML IV SCH (00:17)
[2021-12-24 05:02] LABS: Basophils % 0.4 % (0.0-0.8); Eosinophils # 0.6 10*3/uL (0.0-0.87); Eosinophils % 5.9 % (0.00-10.9); Hematocrit 28.6 VOL% (35.7-47.0); Hemoglobin 9.1 GM/DL (12.0-16.0); Immature Granulocytes % 3.6 %; Immature Granulocytes Absolute 0.35 #; Lymphocytes % 20.2 % (21.3-54.2); Mean Corpuscular HGB Conc 31.8 GM/DL (32-36); Mean Corpuscular Volume 93.2 FL (87-102); Mean Platelet Volume 10.2 FL (9.6-12.0); Monocytes # 0.8 10*3/uL (0.11-0.8); Monocytes % 7.8 % (1.7-12.7); Neutrophils % 62.1 % (38.7-73.9); Platelet Count 341 T/CUMM (130-400); Red Blood Count 3.07 MC/CUMM (3.8-5.5); Red Cell Distribution Width 13.4 % (9.3-17.3); White Blood Count 9.7 T/CUMM (4-12)
[2021-12-24 05:25] LABS: Calcium 9.3 MG/DL (8.5-10.1); Osmolality,Calculated 290.4 MOS/KG (273-304); Potassium 4.3 MMOL/L (3.5-5.1)
[2021-12-24] MEDS: LEVOTHYROXINE 175 MCG TABLET PO SCH (06:46)
[2021-12-24] MEDS: hydroCHLOROthiazide 25 MG TABLET PO SCH (08:40)
[2021-12-24] MEDS: PANTOPRAZOLE 40 MG TABLET PO SCH (08:41)
[2021-12-24] MEDS: carvediloL 25 MG TABLET PO SCH ×2 (08:41→16:27)
[2021-12-24] MEDS: MAGNESIUM CHLORIDE 64 MG TABLET PO SCH ×2 (08:41→20:40)
[2021-12-24] MEDS: DOCUSATE SODIUM 100 MG CAPSULE PO SCH ×2 (08:41→20:39)
[2021-12-24] MEDS: cefTRIAXone 1,000 MG in SODIUM CHLORIDE 0.9% 100 ML IV SCH (08:42)
[2021-12-24] MEDS: FLUTICASONE 50 MCG NASAL SPRAY 16 GM BOTTLE BOTH NARES SCH (08:46)
[2021-12-24] MEDS: MORPHINE 2 MG/1 ML SYRINGE IV PRN ×2 (11:54→21:17)
[2021-12-24] MEDS: diphenhydrAMINE CAP 25 MG CAPSULE PO SCH (20:39)
[2021-12-24] MEDS: ENOXAPARIN 30 MG/0.3 ML SYRINGE SUBCUT SCH (20:39)
[2021-12-24] MEDS: DULoxetine 30 MG CAPSULE PO SCH (20:39)
[2021-12-24] MEDS: ACETAMINOPHEN 500 MG TABLET PO SCH (20:40)
[2021-12-24] MEDS: ALPRAZolam 0.25 MG TABLET PO PRN (20:41)
[2021-12-24] MEDS: SIMVASTATIN 10 MG TABLET PO SCH (20:41)
[2021-12-25] MEDS: MORPHINE 2 MG/1 ML SYRINGE IV PRN ×2 (03:15→14:18)
[2021-12-25] MEDS: LEVOTHYROXINE 175 MCG TABLET PO SCH (05:46)
[2021-12-25] MEDS: DOCUSATE SODIUM 100 MG CAPSULE PO SCH (09:06)
[2021-12-25] MEDS: PANTOPRAZOLE 40 MG TABLET PO SCH (09:07)
[2021-12-25] MEDS: MAGNESIUM CHLORIDE 64 MG TABLET PO SCH (09:07)
[2021-12-25] MEDS: hydroCHLOROthiazide 25 MG TABLET PO SCH (09:07)
[2021-12-25] MEDS: FLUTICASONE 50 MCG NASAL SPRAY 16 GM BOTTLE BOTH NARES SCH (09:07)
[2021-12-25] MEDS: cefTRIAXone 1,000 MG in SODIUM CHLORIDE 0.9% 100 ML IV SCH (10:11)
[2021-12-25] MEDS: carvediloL 25 MG TABLET PO SCH ×2 (10:11→17:50)
[2021-12-25 15:50] VITALS: BP 159/57
== END 2021-12-25 18:33 | disposition hospice, home (50) | DRG 862 ==
LOC: N.ED 09:10 → INTOOBSV 13:18 → N.EDINP 13:18 → N.5E 21:48
PROVIDERS: ADMIT Family Medicine; ATTEND Family Medicine